=== PATIENT | female | born 1975 | race Caucasian/White ===

== ENCOUNTER 2016-11-29 10:19 | Outpatient (CLI) | payer OTHER ==
[2016-11-29 10:33] LABS: BILIRUBIN,URINE NEGATIVE (NEGATIVE)
[2016-11-29 10:34] LABS: BASOPHILS # (AUTO) 0.1 10^3/uL (0.0-0.1); BASOPHILS % (AUTO) 0.8 %; EOSINOPHILS # (AUTO) 0.2 10^3/uL (0.0-0.7); EOSINOPHILS % (AUTO) 2.8 %; HCT - HEMATOCRIT 41.2 % (37.0-47.0); HGB - HEMOGLOBIN 14.4 g/dL (12.0-16.0); LYMPHOCYTES # (AUTO) 3.1 10^3/uL (1.5-3.5); LYMPHOCYTES % (AUTO) 35.2 %; MEAN CORPUSCULAR HEMOGLOBIN 30.1 pg (27.0-31.0); MEAN CORPUSCULAR HGB CONC 34.9 g/dL (32.0-36.0); MEAN CORPUSCULAR VOLUME 86.3 fL (81.0-99.0); MEAN PLATELET VOLUME 7.3 fL (7.9-10.8); MONOCYTES # (AUTO) 0.5 10^3/uL (0.0-1.0); MONOCYTES % (AUTO) 5.7 %; NEUTROPHILS # (AUTO) 4.9 10^3/uL (1.5-6.6); NEUTROPHILS % (AUTO) 55.5 %; RED BLOOD COUNT 4.78 10^6/uL (4.20-5.40); RED CELL DISTRIBUTION WIDTH 13.8 % (12.0-15.0); UNCORRECTED WHITE BLOOD COUNT 8.8 x10^3/uL; WHITE BLOOD COUNT 8.8 x10^3/uL (4.8-10.8)
[2016-11-29 10:52] LABS: WBC,URINE 0-3 /HPF (0-5)
[2016-11-29 10:53] LABS: UR CULTURE IF IND NOT INDICATED
== END 2016-11-29 10:20 | disposition home or self-care (01) ==
LOC: LAB 10:19
PROVIDERS: ATTEND Surgery
DX: K57.92 Diverticulitis of intestine, part unspecified, without perforation or abscess without bleeding (principal)
CPT/HCPCS: 36415; 81001; 85025; 87086

== ENCOUNTER 2016-12-03 07:20 | Outpatient (CLI) | payer OTHER ==
[2016-12-03] MEDS ORDERED: IOPAMIDOL-300 50 ML VIAL PO ONE (08:46)
[2016-12-03] MEDS ORDERED: IOPAMIDOL-300 100 ML VIAL IVP ONE (08:46)
== END 2016-12-03 07:21 | disposition home or self-care (01) ==
DX: K57.30 Diverticulosis of large intestine without perforation or abscess without bleeding (principal)
CPT/HCPCS: 74177; Q9967

== ENCOUNTER 2017-01-13 13:40 | Emergency (ER) | payer OTHER ==
[2017-01-13 13:55] VITALS: BP 130/93
[2017-01-13 14:07] LABS: BILIRUBIN,URINE NEGATIVE (NEGATIVE); PH,URINE 6.5 PH (5.0-7.5)
[2017-01-13 14:09] LABS: UA w/ MICROSCOPIC CHARGE YES
[2017-01-13 14:14] LABS: BASOPHILS % (AUTO) 0.6 %; EOSINOPHILS # (AUTO) 0.1 10^3/uL (0.0-0.7); EOSINOPHILS % (AUTO) 2.3 %; HCT - HEMATOCRIT 40.2 % (37.0-47.0); HGB - HEMOGLOBIN 14.1 g/dL (12.0-16.0); MEAN CORPUSCULAR HEMOGLOBIN 29.8 pg (27.0-31.0); MEAN CORPUSCULAR VOLUME 85.4 fL (81.0-99.0); MEAN PLATELET VOLUME 7.2 fL (7.9-10.8); MONOCYTES # (AUTO) 0.4 10^3/uL (0.0-1.0); NEUTROPHILS # (AUTO) 2.7 10^3/uL (1.5-6.6); NEUTROPHILS % (AUTO) 43.1 %; RED BLOOD COUNT 4.71 10^6/uL (4.20-5.40); RED CELL DISTRIBUTION WIDTH 13.9 % (12.0-15.0); UNCORRECTED WHITE BLOOD COUNT 6.3 x10^3/uL; WHITE BLOOD COUNT 6.3 x10^3/uL (4.8-10.8)
[2017-01-13 14:28] LABS: ALBUMIN/GLOBULIN RATIO 1.8 (1.0-2.2); BILIRUBIN,TOTAL 0.8 mg/dL (0.2-1.0); CALCIUM 9.2 mg/dL (8.5-10.3); CREATININE 0.7 mg/dL (0.4-1.0); POTASSIUM 3.9 mmol/L (3.5-5.0); TOTAL PROTEIN 7.4 g/dL (6.7-8.2)
[2017-01-13 14:29] LABS: UR CULTURE IF IND NOT INDICATED
--- NOTE | 2017-01-13 14:48 | ED Physician Documentation ---
PD HPI ABD PAIN - Stated complaint Stated Complaint: FEMALE - Chief complaint Chief Complaint: Abd Pain - History obtained from History obtained from: Patient - History of Present Illness Timing - onset: How many weeks ago (1) Timing - duration: Weeks (1) Timing - details: Gradual onset Pain level max: 5 Pain level now: 5 Quality: Aching, Pain Location: Other (lower abdomen) Improved by: Laying still Worsened by: Palpation Associated symptoms: Fever (100.2), Dysuria, Hematuria, Vaginal dc (clear). No : Hematemesis, Diarrhea, Constipation, Melena Similar symptoms before: Diagnosis (diverticulitis) Recently seen: Not recently seen - Additional information Additional information: h/o diverticulitis in october 2016 Review of Systems Constitutional: denies: Fever, Chills Nose: denies: Rhinorrhea / runny nose, Congestion Throat: denies: Sore throat : reports: Dysuria, Frequency, Hesitancy Musculoskeletal: denies: Neck pain, Back pain Neurologic: denies: Headache PD PAST MEDICAL HISTORY - Past Medical History Past Medical History: Yes Cardiovascular: None Respiratory: None Neuro: None Endocrine/Autoimmune: None GI: GERD, Diverticulitis 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 : None HEENT: None Derm: None, Eczema - Past Surgical History Past Surgical History: Yes General: 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 - Present Medications Home Medications: Ambulatory Orders Medication Instructions Recorded Confirmed Acetaminophen [Tylenol Extra 1 gm ORAL BID 04/06/16 04/06/16 Strength] HYDROcod/ACETAM 5/325 [[place] 5/325] 1 - 2 ea PO Q6H PRN #10 tablet 04/06/16 Ibuprofen 1 tab ORAL TID 04/06/16 01/13/17 Amox/Clav 875/125 [Augmentin] 1 each PO Q12H #10 tablet 01/13/17 Omeprazole [PriLOSEC] 40 mg PO DAILY 01/13/17 01/13/17 Phenazopyridine HCl [Pyridium] 200 mg PO TID PRN #6 tablet 01/13/17 - Allergies Allergies/Adverse Reactions: Allergies Allergy/AdvReac Type Severity Reaction Status Date / Time No Known Drug Allergies Allergy Verified 01/13/17 13:55 - Social History Does the pt smoke?: Yes Smoking Status: Current every day smoker Does the pt drink ETOH?: Yes Does the pt have substance abuse?: No - Immunizations Immunizations are current?: Yes PD ED PE NORMAL - Vitals Vital signs reviewed: Yes - General General: Alert and oriented X 3, No acute distress - Cardiac Cardiac: RRR - Respiratory Respiratory: No respiratory distress, Clear bilaterally - Abdomen Abdomen: Soft, Other (mild TTP suprapubic without peritoneal signs) - Female Female : Pt declined - Rectal Rectal: Pt declined - Back Back: No CVA TTP, No spinal TTP - Derm Derm: Warm and dry, No rash - Neuro Neuro: Alert and oriented X 3 - Psych Psych: Normal mood, Normal affect Results - Vitals Vitals: Oxygen O2 Source Room air - Labs Labs: Laboratory Tests 01/13/17 01/13/17 01/13/17 13:46 14:10 14:10 WBC 6.3 RBC 4.71 Hgb 14.1 Hct 40.2 MCV 85.4 MCH 29.8 MCHC 35.0 RDW 13.9 Plt Count 175 MPV 7.2 L Neut # 2.7 Lymph # 3.0 [place] # 0.4 Eos # 0.1 Baso # 0.0 Absolute Nucleated RBC 0.00 Nucleated RBCs 0.0 Sodium 138 Potassium 3.9 Chloride 104 Carbon Dioxide 27 Anion Gap 7.0 BUN 7 Creatinine 0.7 Estimated GFR (MDRD) 93 Glucose 94 Calcium 9.2 Total Bilirubin 0.8 AST 28 ALT 26 Alkaline Phosphatase 105 Total Protein 7.4 Albumin 4.8 Globulin 2.6 Albumin/Globulin Ratio 1.8 Lipase 23 Urine Color YELLOW Urine Clarity HAZY Urine pH 6.5 Ur Specific [place] 1.010 Urine Protein NEGATIVE Urine Glucose (UA) NEGATIVE Urine Ketones NEGATIVE Urine Occult Blood NEGATIVE Urine Nitrite NEGATIVE Urine Bilirubin NEGATIVE Urine Urobilinogen 0.2 (NORMAL) Ur Leukocyte Esterase TRACE H Urine RBC 0-5 Urine WBC 6-10 H Ur Squamous Epith Cells MOD Squamous H Urine Bacteria Many H Ur Microscopic Review INDICATED Urine Culture Comments NOT INDICATED PD MEDICAL DECISION MAKING - ED course Complexity details: reviewed results, re-evaluated patient, considered differential, d/w patient ED course: Patient is a 41-year-old female who presents to the emergency department with what appears to be a UTI. There was some concern of possible recurrence of her diverticulitis, patient declines any further testing at this time. She also declines a rectal exam or pelvic exam. We will treat her with Augmentin which should cover her UTI as well as a possible recurrence of her diverticulitis. She will return if she worsens. She is very well-appearing, nontoxic. Afebrile. Tolerating p.o. without difficulty. No peritoneal signs on exam. No STD exposure. Patient and family counseled regarding signs and symptoms for which I believe and urgent re-evaluation would be necessary. Patient with good understanding of and agreement to plan and is comfortable going home at this time This document was made in part using voice recognition software. While efforts are made to proofread this document, sound alike and grammatical errors may occur. Departure - Departure Disposition: Home, Self Care Clinical Impression: UTI (urinary tract infection) Qualifiers: Urinary tract infection type: acute cystitis Hematuria presence: without hematuria Qualified Code(s): N30.00 - Acute cystitis without hematuria Condition: Good Instructions: ED UTI Cystitis Female Follow-Up: Jluis Corona MD [Primary Care Provider] - Within 1 week Prescriptions: Amox/Clav 875/125 [Augmentin] 1 each PO Q12H #10 tablet Phenazopyridine HCl [Pyridium] 200 mg PO TID PRN #6 tablet PRN Reason: dysuria Comments: Return if you worsen. Take all antibiotics until gone. Your blood pressure was elevated today on check in to the emergency department. This does not mean that you have hypertension, it is a common phenomenon to check into the emergency department and have elevated blood pressure. I recommend that you see your primary care physician within the week to have it rechecked when you're feeling better. Discharge Date/Time: 01/13/17 15:07
[2017-01-13] MEDS ORDERED: AMOX/CLAV 875 MG/125 MG TABLET PO STA (14:59)
[2017-01-13] MEDS ORDERED: PHENAZOPYRIDINE 100 MG TABLET PO STA (14:59)
[2017-01-13] MEDS ORDERED: PHENAZOPYRIDINE 100 MG TABLET PO ONE (15:03)
[2017-01-13] MEDS ORDERED: AMOX/CLAV 875 MG/125 MG TABLET PO ONE (15:03)
== END 2017-01-13 15:07 | disposition home or self-care (01) ==
LOC: ED 13:40
DX: N30.00 Acute cystitis without hematuria (principal); R03.0 Elevated blood-pressure reading, without diagnosis of hypertension; F17.200 Nicotine dependence, unspecified, uncomplicated
CPT/HCPCS: 36415; 80053; 81001; 83690; 85025; 99283; A9270; 81003; 87086

== ENCOUNTER 2017-01-23 09:22 | Day surgery (SDC) | payer OTHER ==
[2017-01-23] MEDS ORDERED: LACTATED RINGERS 1,000 ML IV ONE ×2 (09:31→11:52)
[2017-01-23] MEDS ORDERED: MIDAZOLAM 2 MG/2 ML VIAL IVP ONE (10:05)
[2017-01-23] MEDS ORDERED: fentaNYL 100 MCG/2 ML VIAL IVP ONE (10:05)
--- NOTE | 2017-01-23 10:11 | HISTORY & PHYSICAL EXAMINATION ---
HPI - History of Present Illness HPI Comment/Other: Visit Type: Follow-up Referring Provider: Hilario History of Present Illness: Patient is here today to discuss pain meds....................................................................Carla Dudley TALAVERA December 17, 2016 11:01 AM Since her last visit she had hematurea and was seen in the ER and treated for a UTI and this has resolved. She also has seen some bright red blood in her stool in the past week and continues to have loose stools. Current Meds: PRILOSEC 20 MG CPDR (OMEPRAZOLE) Take twocapsule by mouth daily HALOBETASOL PROPIONATE 0.05 % EXT CREA (HALOBETASOL PROPIONATE) Apply topical to affected area daily Allergies: Physical Exam General: well developed, well nourished, in no acute distress Lungs: clear bilaterally to A & P Heart: regular rate and rhythm, S1, S2 without murmurs, rubs, gallops, or clicks Abdomen: Mild right lower pelvic pain to palpation without any guarding or rebound tenderness. No masses palpable. Pulses: pulses normal in all 4 extremities Extremities: no clubbing, cyanosis, edema, or deformity noted with normal full range of motion of all joints Cervical Nodes: no significant adenopathy Psych: alert and cooperative; normal mood and affect; normal attention span and concentration Medications were reviewed with the patient during this visit. Allergies were reviewed with the patient during this visit. No known allergies. Problems: Problems Added: 1) Dx of Abdominal pain (EVP14-C95.9) (ICD-789.00) Impression & Recommendations: Problem # 1: rectal bleeding, change in bowel habits, abdominal pain Proceed with colonoscopy. 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: None : positive: None HEENT: positive: None Psych: positive: Panic attacks Musculoskeletal: positive: None Derm: positive: None, Eczema MRSA Hx?: No - Past Surgical History General: positive: Colonoscopy /DIRECTOR OF PROVIDER RELATIONS: positive: 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 Social & Family Hx - Social History Does the pt smoke?: Yes Smoking Status: Current every day smoker Does the pt drink ETOH?: Yes Does the pt have substance abuse?: No Meds/Allgy - Home Medications Home Medications: Ambulatory Orders Medication Instructions Recorded Confirmed Omeprazole [PriLOSEC] 40 mg PO DAILY 01/13/17 01/23/17 - Allergies Allergies/Adverse Reactions: Allergies Allergy/AdvReac Type Severity Reaction Status Date / Time No Known Drug Allergies Allergy Verified 01/23/17 09:39 Exam - Vital Signs Vital Signs: Vital Signs x48h Temp Pulse Resp BP Pulse Ox 01/23/17 09:32 36.7 C 87 16 128/90 H 99
[2017-01-23 11:59] VITALS: BP 117/73
== END 2017-01-23 09:23 | disposition home or self-care (01) ==
LOC: SDS 09:22
PROVIDERS: ATTEND Surgery
PROC: 0DBE8ZX Excision of Large Intestine, Via Natural or Artificial Opening Endoscopic, Diagnostic (ICD-10-PCS; 2017-01-23)
PROC: 0DBN8ZX Excision of Sigmoid Colon, Via Natural or Artificial Opening Endoscopic, Diagnostic (ICD-10-PCS; principal; 2017-01-23 10:30)
DX: K62.5 Hemorrhage of anus and rectum (principal); R19.4 Change in bowel habit; R10.9 Unspecified abdominal pain; K63.5 Polyp of colon; K57.30 Diverticulosis of large intestine without perforation or abscess without bleeding; K64.8 Other hemorrhoids; F17.200 Nicotine dependence, unspecified, uncomplicated; K21.9 Gastro-esophageal reflux disease without esophagitis; Z90.710 Acquired absence of both cervix and uterus
CPT/HCPCS: 45380; J7120; 88305

== ENCOUNTER 2017-04-20 18:01 | Emergency (ER) | payer OTHER ==
[2017-04-20] MEDS ORDERED: HYDROmorphone 1 MG/ML CARPUJECT IVP STA ×3 (18:20→20:54)
[2017-04-20] MEDS ORDERED: SODIUM CHLORIDE 0.9% 1,000 ML IV ONE (18:20)
--- NOTE | 2017-04-20 18:22 | ED Physician Documentation ---
PD HPI ABD PAIN - Stated complaint Stated Complaint: DIARRHEA,ABD PX - Chief complaint Chief Complaint: Abd Pain - History obtained from History obtained from: Patient - History of Present Illness Timing - onset: Other (She finished a 5 day course of Augmentin approximately 5 days ago for pneumonia. Starting yesterday she has had profuse diarrhea and lower abdominal cramps. Also sensation of fever.) Review of Systems Ten Systems: 10 systems reviewed and negative Constitutional: reports: Fever, Chills, Fatigue Respiratory: reports: Cough. denies: Dyspnea GI: reports: Abdominal Pain, Diarrhea. 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 - Present Medications Home Medications: Ambulatory Orders Medication Instructions Recorded Confirmed Albuterol 2.5 mg INH Q4H PRN 04/20/17 04/20/17 Dicyclomine HCl 20 mg PO QID PRN #20 tablet 04/20/17 Esomeprazole Magnesium [Nexium] 40 mg PO DAILY 04/20/17 04/20/17 Fluticasone [Flonase] 1 sprays JOSEPHINE DAILY 04/20/17 04/20/17 HYDROcod/ACETAM 5/325 [[place] 5/325] 1 - 2 ea PO Q6H PRN #15 tablet 04/20/17 Metronidazole [Flagyl] 500 mg PO TID #30 tablet 04/20/17 Pseudoephedrine [Sudafed] 30 mg PO Q6H 04/20/17 04/20/17 - Allergies Allergies/Adverse Reactions: Allergies Allergy/AdvReac Type Severity Reaction Status Date / Time No Known Drug Allergies Allergy Verified 04/20/17 18:16 - Social History Does the pt smoke?: Yes Smoking Status: Current every day smoker Does the pt drink ETOH?: Yes Does the pt have substance abuse?: No - Immunizations Immunizations are current?: Yes PD ED PE NORMAL - Vitals Vital signs reviewed: Yes - General General: Alert and oriented X 3, Other (Appears uncomfortable) - HEENT HEENT: PERRL, EOMI - Neck Neck: Supple, no meningeal sign, No bony TTP - Cardiac Cardiac: RRR, No murmur - Respiratory Respiratory: No respiratory distress, Clear bilaterally - Abdomen Abdomen: Other (Lower abdominal tenderness that does not lateralize, moderate. No guarding or rebound.) - Back Back: No CVA TTP, No spinal TTP - Derm Derm: Normal color, Warm and dry - Extremities Extremities: No edema, No calf tenderness / cord - Neuro Neuro: Alert and oriented X 3, Normal speech - Psych Psych: Normal mood, Normal affect Results - Vitals Vitals: Vital Signs - 24 hr 04/20/17 04/20/17 04/20/17 18:13 19:26 21:04 Temperature 37.3 C Heart Rate 84 93 96 Respiratory 16 18 Rate Blood Pressure 134/84 H 124/76 115/83 H O2 Saturation 100 100 99 Oxygen O2 Source Room air - Labs Labs: Microbiology 04/20/17 18:15 Clostridium difficile (PCR) - Final Stool 04/20/17 18:15 Campylobacter Antigen Assay - Final Stool Laboratory Tests 04/20/17 04/20/17 19:00 19:00 WBC 13.7 H RBC 4.69 Hgb 13.9 Hct 41.0 MCV 87.3 MCH 29.7 MCHC 34.0 RDW 13.9 Plt Count 189 MPV 7.6 L Neut # 11.0 H Lymph # 1.8 [place] # 0.7 Eos # 0.1 Baso # 0.0 Absolute Nucleated RBC 0.01 Nucleated RBC % 0.0 Sodium 140 Potassium 3.6 Chloride 104 Carbon Dioxide 26 Anion Gap 10.0 BUN 9 Creatinine 0.6 Estimated GFR (MDRD) 111 Glucose 97 Calcium 9.0 Total Bilirubin 0.8 AST 21 ALT 22 Alkaline Phosphatase 95 Total Protein 7.0 Albumin 4.2 Globulin 2.8 Albumin/Globulin Ratio 1.5 Lipase 21 L PD MEDICAL DECISION MAKING - ED course ED course: 41-year-old woman with a compelling history for C. difficile colitis is found to have the same on lab testing and is treated with metronidazole. Departure - Departure Disposition: 01 Home, Self Care Clinical Impression: Clostridium difficile colitis Condition: Good Record reviewed to determine appropriate education?: Yes Instructions: Clostridium Difficile Infec Prescriptions: Dicyclomine HCl 20 mg PO QID PRN #20 tablet PRN Reason: Abdominal Cramps HYDROcod/ACETAM 5/325 [[place] 5/325] 1 - 2 ea PO Q6H PRN #15 tablet PRN Reason: Pain Metronidazole [Flagyl] 500 mg PO TID #30 tablet Comments: Wash your hands well, do not Drink alcohol while on the antibiotics. Follow up with your doctor on Friday as scheduled. Do not drink or drive while taking narcotic pain medication. Note that many narcotic pain relievers also contain Tylenol/acetaminophen. Please ensure that your total dose of acetaminophen from all sources does not exceed 3 g (3000 mg) per day. You may get constipated while on this medication. Take a stool softener such as Colace twice a day while you are on it. Also add an [id number] laxative such as senna or MiraLAX on any day that you do not have a bowel movement. If you received a narcotic pain medication or sedative while in the emergency department, do not drive for the next 24 hours. Your blood pressure was elevated today on check into the emergency department. This does not mean that you have hypertension, it is a common phenomenon to come to the emergency department and have elevated blood pressure. I recommend that she see your primary care physician within the week to have it rechecked when you are feeling better.
[2017-04-20 19:27] LABS: BASOPHILS % (AUTO) 0.2 %; EOSINOPHILS # (AUTO) 0.1 10^3/uL (0.0-0.7); EOSINOPHILS % (AUTO) 0.5 %; HGB - HEMOGLOBIN 13.9 g/dL (12.0-16.0); LYMPHOCYTES # (AUTO) 1.8 10^3/uL (1.5-3.5); LYMPHOCYTES % (AUTO) 13.5 %; MEAN CORPUSCULAR HEMOGLOBIN 29.7 pg (27.0-31.0); MEAN CORPUSCULAR VOLUME 87.3 fL (81.0-99.0); MEAN PLATELET VOLUME 7.6 fL (7.9-10.8); MONOCYTES # (AUTO) 0.7 10^3/uL (0.0-1.0); MONOCYTES % (AUTO) 5.3 %; NEUTROPHILS % (AUTO) 80.5 %; RED BLOOD COUNT 4.69 10^6/uL (4.20-5.40); RED CELL DISTRIBUTION WIDTH 13.9 % (12.0-15.0); UNCORRECTED WHITE BLOOD COUNT 13.7 x10^3/uL; WHITE BLOOD COUNT 13.7 x10^3/uL (4.8-10.8)
[2017-04-20 19:47] LABS: ALBUMIN/GLOBULIN RATIO 1.5 (1.0-2.2); BILIRUBIN,TOTAL 0.8 mg/dL (0.2-1.0); CREATININE 0.6 mg/dL (0.4-1.0); POTASSIUM 3.6 mmol/L (3.5-5.0)
[2017-04-20] MEDS ORDERED: HYDROmorphone 1 MG/ML CARPUJECT ONE ×2 (19:53→21:05)
[2017-04-20] MEDS ORDERED: SODIUM CHLORIDE FLUSH 0.9% 10 ML SYRINGE IVP ONE (21:06)
[2017-04-20] MEDS ORDERED: metroNIDAZOLE 250 MG TABLET PO STA (21:36)
[2017-04-20] MEDS ORDERED: HYDROcod/ACET 5/325 Prepack 6 PO STA (21:36)
[2017-04-20] MEDS ORDERED: metroNIDAZOLE 250 MG TABLET PO ONE (21:44)
[2017-04-20] MEDS ORDERED: HYDROcod/ACET 5/325 Prepack 6 PO ONE (21:45)
[2017-04-20 21:57] VITALS: BP 113/72
== END 2017-04-20 21:57 | disposition home or self-care (01) ==
LOC: ED 18:01
DX: A04.72 Enterocolitis due to Clostridium difficile, not specified as recurrent (principal); K21.9 Gastro-esophageal reflux disease without esophagitis; F17.200 Nicotine dependence, unspecified, uncomplicated; R03.0 Elevated blood-pressure reading, without diagnosis of hypertension
CPT/HCPCS: 36415; 80053; 83690; 85025; 87045; 87046; 87493; 96361; 96374; 96375; 96376; 99284; A9270; J1170

== ENCOUNTER 2017-04-22 17:41 | Emergency (ER) | payer OTHER ==
[2017-04-22] MEDS: ALBUTEROL NEB 2.5 MG/3 ML INH STA (18:37)
--- NOTE | 2017-04-22 18:51 | ED Physician Documentation ---
PD HPI NVD - Stated complaint Stated Complaint: BLOODY DISCHARGE - Chief complaint Chief Complaint: Abd Pain - History obtained from History obtained from: Patient - History of Present Illness Associated symptoms: Abdominal pain, Hematochezia (mild amount of bloody mucous with diarrhea the past 2-3 days. Feeling generally weak, and worse today. Poor PO due to nausea.), Loss of appetite. No: Fever Contributing factors: No: Sick contact, Bad food, Travel, Recent antibiotics Recently seen: Clinic (today, and was told to come to ER for fluids/meds/IV abx. ), Emergency Dept (2 days ago for diarrhea and Dx with .Diff.) Review of Systems Constitutional: reports: Chills, Myalgias. denies: Fever Nose: denies: Rhinorrhea / runny nose, Congestion Throat: denies: Sore throat Respiratory: denies: Cough GI: reports: Abdominal Pain, Nausea, Diarrhea, Bloody / black stool. denies: Abdominal Swelling, Vomiting : denies: Dysuria, Frequency Skin: denies: Rash Neurologic: reports: Generalized weakness, Near syncope, Headache. 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 - Present Medications Home Medications: Ambulatory Orders Medication Instructions Recorded Confirmed Albuterol 2.5 mg INH Q4H PRN 04/20/17 04/20/17 Dicyclomine HCl 20 mg PO QID PRN #20 tablet 04/20/17 Esomeprazole Magnesium [Nexium] 40 mg PO DAILY 04/20/17 04/20/17 Fluticasone [Flonase] 1 sprays [place]SE[place] DAILY 04/20/17 04/20/17 HYDROcod/ACETAM 5/325 [[place] 5/325] 1 - 2 ea PO Q6H PRN #15 tablet 04/20/17 Metronidazole [Flagyl] 500 mg PO TID #30 tablet 04/20/17 Pseudoephedrine [Sudafed] 30 mg PO Q6H 04/20/17 04/20/17 HYDROcod/ACETAM 5/325 [[place] 5/325] 1 tab PO Q6H PRN #15 tablet 04/22/17 Ondansetron Odt [Zofran] 4 mg TL Q6H PRN #15 tablet 04/22/17 Saccharomyces Boulardii [Florastor] 250 mg PO BID #20 capsule 04/22/17 - Allergies Allergies/Adverse Reactions: Allergies Allergy/AdvReac Type Severity Reaction Status Date / Time No Known Drug Allergies Allergy Verified 04/22/17 17:58 - Social History Does the pt smoke?: Yes Smoking Status: Current every day smoker Does the pt drink ETOH?: Yes Does the pt have substance abuse?: No - Immunizations Immunizations are current?: Yes PD ED PE NORMAL - Vitals Vital signs reviewed: Yes - General General: Alert and oriented X 3, Well developed/nourished - HEENT HEENT: Pharynx benign. No: Moist mucous membranes - Neck Neck: Supple, no meningeal sign, No adenopathy - Cardiac Cardiac: RRR, No murmur - Respiratory Respiratory: Clear bilaterally - Abdomen Abdomen: Normal bowel sounds, Soft, Non distended, No organomegaly, Other ( generally tender, more in lower abd left and right. ) - Female Female : Deferred - Rectal Rectal: Deferred - Back Back: No CVA TTP - Derm Derm: Normal color, Warm and dry, No rash Results - Vitals Vitals: Oxygen O2 Source Room air - Labs Labs: Laboratory Tests 04/22/17 04/22/17 19:56 19:56 WBC 6.9 RBC 4.12 L Hgb 12.6 Hct 35.4 L MCV 85.9 MCH 30.5 MCHC 35.4 RDW 14.1 Plt Count 212 MPV 7.8 L Neut # 3.2 Lymph # 3.0 [place] # 0.5 Eos # 0.1 Baso # 0.1 Absolute Nucleated RBC 0.01 Nucleated RBC % 0.1 Sodium 140 Potassium 3.3 L Chloride 104 Carbon Dioxide 27 Anion Gap 9.0 BUN 8 Creatinine 0.6 Estimated GFR (MDRD) 111 Glucose 98 Calcium 9.0 Magnesium 2.1 Total Bilirubin 0.6 AST 21 ALT 21 Alkaline Phosphatase 71 Total Protein 7.0 Albumin 4.0 Globulin 3.0 Albumin/Globulin Ratio 1.3 Lipase 25 PD MEDICAL DECISION MAKING - ED course Complexity details: reviewed old records, reviewed results, re-evaluated patient (she improves feeling better after IV fluids and meds. Taking orally okay. I do not see need for hospitalization per se and she prefers going home. Discussed PO meds being more effective than IV for c.diff and adding probiotics quite effective. ), considered differential, d/w patient Departure - Departure Disposition: Home, Self Care Clinical Impression: Clostridium difficile colitis, Nausea Abdominal pain Qualifiers: Abdominal location: generalized Qualified Code(s): R10.84 - Generalized abdominal pain Condition: Stable Record reviewed to determine appropriate education?: Yes Follow-Up: Jluis Corona MD [Primary Care Provider] - Prescriptions: HYDROcod/ACETAM 5/325 [[place] 5/325] 1 tab PO Q6H PRN #15 tablet PRN Reason: Pain Ondansetron Odt [Zofran] 4 mg TL Q6H PRN #15 tablet PRN Reason: Nausea / Vomiting Saccharomyces Boulardii [Florastor] 250 mg PO BID #20 capsule Comments: Continue the oral metronidazole. Add to that an oral probiotic (Florastor) twice daily for 10 days. This commonly allows for good improvement in the C. difficile colitis symptoms as well. Ondansetron if needed for nausea. Use hydrocodone if needed for pains. Drink lots of fluids. I would expect the diarrhea and cramps to be decreasing after another 2 or 3 days on the antibiotics along with adding the probiotic. Recheck if worsening symptoms or if not improved over that timeframe. Discharge Date/Time: 04/22/17 21:59
[2017-04-22] MEDS: SODIUM CHLORIDE 0.9% 1,000 ML IV ONE (19:56)
[2017-04-22 20:09] LABS: BASOPHILS # (AUTO) 0.1 10^3/uL (0.0-0.1); EOSINOPHILS # (AUTO) 0.1 10^3/uL (0.0-0.7); HCT - HEMATOCRIT 35.4 % (37.0-47.0); HGB - HEMOGLOBIN 12.6 g/dL (12.0-16.0); LYMPHOCYTES % (AUTO) 43.2 %; MEAN CORPUSCULAR HEMOGLOBIN 30.5 pg (27.0-31.0); MEAN CORPUSCULAR HGB CONC 35.4 g/dL (32.0-36.0); MEAN CORPUSCULAR VOLUME 85.9 fL (81.0-99.0); MEAN PLATELET VOLUME 7.8 fL (7.9-10.8); MONOCYTES # (AUTO) 0.5 10^3/uL (0.0-1.0); MONOCYTES % (AUTO) 6.9 %; NEUTROPHILS # (AUTO) 3.2 10^3/uL (1.5-6.6); NEUTROPHILS % (AUTO) 46.9 %; NUCLEATED RED BLOOD CELLS AUTO 0.1 /100WBC; RED BLOOD COUNT 4.12 10^6/uL (4.20-5.40); RED CELL DISTRIBUTION WIDTH 14.1 % (12.0-15.0); UNCORRECTED WHITE BLOOD COUNT 6.9 x10^3/uL; WHITE BLOOD COUNT 6.9 x10^3/uL (4.8-10.8)
[2017-04-22] MEDS ORDERED: HYDROmorphone 1 MG/ML CARPUJECT ONE ×2 (20:18→21:42)
[2017-04-22] MEDS ORDERED: ACETAMINOPHEN 1,000 MG/100 ML 100 ML IV ONE (20:18)
[2017-04-22] MEDS ORDERED: ONDANSETRON 4 MG/2 ML VIAL ONE (20:18)
[2017-04-22 20:19] LABS: ALBUMIN/GLOBULIN RATIO 1.3 (1.0-2.2); BILIRUBIN,TOTAL 0.6 mg/dL (0.2-1.0); CREATININE 0.6 mg/dL (0.4-1.0); MAGNESIUM 2.1 mg/dL (1.7-2.8); POTASSIUM 3.3 mmol/L (3.5-5.0)
[2017-04-22] MEDS: ONDANSETRON 4 MG/2 ML VIAL IVP STA (20:19)
[2017-04-22] MEDS: HYDROmorphone 1 MG/ML CARPUJECT IVP STA ×2 (20:24→21:40)
[2017-04-22] MEDS: ACETAMINOPHEN 1,000 MG/100 ML 100 ML IV STA (20:33)
[2017-04-22 21:40] VITALS: BP 102/63
== END 2017-04-22 21:59 | disposition home or self-care (01) ==
LOC: ED 17:41
DX: A04.72 Enterocolitis due to Clostridium difficile, not specified as recurrent (principal); R11.0 Nausea; R10.84 Generalized abdominal pain; F17.200 Nicotine dependence, unspecified, uncomplicated
CPT/HCPCS: 36415; 80053; 83690; 83735; 85025; 96361; 96365; 96375; 96376; 99283; 99284